=== PATIENT | male | born 1950 | race Caucasian/White ===

== ENCOUNTER → 2016-11-14 | Day surgery (SDC) | payer MEDICARE, BC ==
[~2016-11-14] MED LIST: ASPIRIN81 M1 PO; CILOXAN 5 ML5 M1 OT; CRESTOR20 M1 PO; GLYBURIDE5 MG PO; LANTUS100 U/ML PO; LEVAQUIN500 M2 PO; METFORMIN1000 MG PO; NORCO 10-325 T1 EACH PO; RAMIPRIL5 MG PO
--- NOTE | ~2016-11-14 | O ---
[place], [place] OPERATIVE NOTE [id number] UN[facility] #: [id number] ROOM: DOCTOR: JAGDISH CEJA MD BIRTHDATE: [birth year] DOS: 11/14/2016 PREOPERATIVE DIAGNOSIS: Chronic otitis media with effusion. POSTOPERATIVE DIAGNOSES: Chronic otitis media with effusion. OPERATION: Left tympanostomy with tube placement. SURGEON: Dr. Ceja ANESTHESIA: General OPERATIVE FINDINGS AND PROCEDURE: The patient was taken to the operating room for left tympanostomy. Following induction of general anesthesia, the patient was positioned supine on the OR table and draped in the standard fashion for ear surgery. The surgical microscope was brought into the operative field. The left ear was examined. Myringotomy was performed. Standard Marvin tympanostomy tube was inserted, and topical Ciprofloxacin drops were instilled. The patient tolerated the procedure well, was awakened, and transported to PACU in satisfactory condition. JAGDISH CEJA MD CM:OPRECORD:OPERATIVE NOTE [id number] JAGDISH CEJA MD 11/14/16 1444 interface
[2016-11-14 12:00] VITALS: BP 139/75
[2016-11-14 13:40] VITALS: BP 148/80
[2016-11-14 13:55] VITALS: BP 170/95
[2016-11-14 14:10] VITALS: BP 170/94
== END | disposition home or self-care (01) ==
LOC: SDC 11-08 08:00
DX: H65.492 Other chronic nonsuppurative otitis media, left ear (principal); E11.9 Type 2 diabetes mellitus without complications; I10 Essential (primary) hypertension; I25.10 Atherosclerotic heart disease of native coronary artery without angina pectoris; Z79.4 Long term (current) use of insulin; Z82.49 Family history of ischemic heart disease and other diseases of the circulatory system; Z98.890 Other specified postprocedural states; F17.210 Nicotine dependence, cigarettes, uncomplicated

== ENCOUNTER → 2021-09-26 | Outpatient (CLI) | payer MEDICARE | END | disposition home or self-care (01) | LOC: MRI 12:31 | PROVIDERS: ATTEND Orthopaedic Surgery | DX: S83.242A Other tear of medial meniscus, current injury, left knee, initial encounter (principal); M17.12 Unilateral primary osteoarthritis, left knee; M23.92 Unspecified internal derangement of left knee; M25.462 Effusion, left knee; M25.562 Pain in left knee; M65.9 Synovitis and tenosynovitis, unspecified; X58.XXXA Exposure to other specified factors, initial encounter; Y93.89 Activity, other specified; Y92.89 Other specified places as the place of occurrence of the external cause; Y99.8 Other external cause status ==

== ENCOUNTER 2022-09-08 17:48 | Emergency (ER) | payer MEDICARE ==
[~2022-09-08] VITALS: Ht 185.4 cm; Wt 90.7 kg
[~2022-09-08 17:48] MED LIST changes: +AMLODIPINE BESYL5 MG PO; +CLOPIDOGREL75 MG PO; +HYDROCHLOROTHIA25 M1 PO; +THICK-IT1 EACH PO
[2022-09-08] MEDS ORDERED: SEPTDS PO (19:24)
== END 2022-09-08 19:40 | disposition home or self-care (01) ==
LOC: ED 17:48
DX: L02.211 Cutaneous abscess of abdominal wall (principal); Z79.899 Other long term (current) drug therapy; Z79.82 Long term (current) use of aspirin; Z90.49 Acquired absence of other specified parts of digestive tract; Z98.890 Other specified postprocedural states; Z90.89 Acquired absence of other organs; Z87.891 Personal history of nicotine dependence

== ENCOUNTER → 2023-03-21 | Outpatient (CLI) | payer MEDICARE ==
[~2023-03-21] MED LIST changes: +SEPTDS PO
== END | disposition home or self-care (01) ==
LOC: MRI 14:00
PROVIDERS: ATTEND Orthopaedic Surgery
DX: M17.12 Unilateral primary osteoarthritis, left knee (principal); M62.562 Muscle wasting and atrophy, not elsewhere classified, left lower leg; M25.462 Effusion, left knee; R93.89 Abnormal findings on diagnostic imaging of other specified body structures

== ENCOUNTER → 2023-04-10 | Outpatient (CLI) | payer MEDICARE ==
[2023-04-10 10:59] LABS: BASO % 0.7 % (0.0-1.0); EOS # 0.4 10*3/uL (0.0-0.4); EOS % 6.3 % (1.0-4.0); HEMATOCRIT 43.4 % (42.0-52.0); LYMPH # 0.7 10*3/uL (1.3-4.4); LYMPH % 12.2 % (27.0-41.0); MEAN CELL VOLUME 81.9 fl (80.0-94.0); MEAN CORPUSCULAR HGB CONC 31.8 g/dl (33.0-37.0); MONO # 0.4 10*3/uL (0.1-1.0); MONO % 7.2 % (3.0-9.0); NEUT # 4.4 10*3/uL (2.3-7.9); NEUT % 73.4 % (47.0-73.0); PLATELET COUNT AUTOMATED 168 10*3/uL (130-400); RED CELL DISTRI WIDTH 14.4 % (0-14.5)
== END | disposition home or self-care (01) ==
LOC: LAB 10:35
PROVIDERS: ATTEND Orthopaedic Surgery
DX: Z87.2 Personal history of diseases of the skin and subcutaneous tissue (principal)